=== PATIENT | female | born 1995 | race Two or more races ===

== ENCOUNTER 2017-03-04 07:53 | Emergency (ER) | payer SELFPAY ==
--- NOTE | 2017-03-06 11:08 | ER ---
ADMIT: 03/04/2017 RM/LOC: ER [facility] MR#: [id number] [facility] [address] [place] [id number] REYNALDO MARTIN [address] [place] [address] Emergency Room Report SEX: F AGE: 21 : 1995 DATE: 03/04/2017 ADDENDUM: This 21-year-old white female coming with abnormal periods, test is negative. CBC is negative. She has had these on and off for some time. Exam is essentially negative. We are going to discharge her out. She needs follow up with her primary to have this worked up. Off work today. CONDITION ON DISCHARGE: Good. Jeremiah Barba MD/ nemo JOB #: [id number] CC: Jeremiah Barba MD, Attending Physician Emelia Low MD, Family Physician
== END 2017-03-04 10:31 | disposition home or self-care (01) ==
LOC: ER 07:53
DX: N92.0 Excessive and frequent menstruation with regular cycle (principal); N93.9 Abnormal uterine and vaginal bleeding, unspecified; Z90.49 Acquired absence of other specified parts of digestive tract